=== PATIENT | male | born 1995 ===

== ENCOUNTER 2017-03-20 08:22 | Emergency (ER) | payer OTHER ==
[2017-03-20 08:26] VITALS: BP 132/72; PULSE 89; O2SAT 97; BMI 25.7
[2017-03-20 08:32] VITALS: RESP 21; TEMP 98.8
[2017-03-20] MEDS ORDERED: Dexamethasone 4 mg/1 ml IM ONE (08:48)
--- NOTE | 2017-03-20 08:52 | ED PDOC ---
HPI: CCC, URI, Sore Throat Time Seen by Provider: 03/20/17 08:41 Chief Complaint (Nursing): ENT Problem Chief Complaint (Provider): Sore Throat History Per: Patient History/Exam Limitations: no limitations Have you had recent travel within the past 21 days to any of the following countries: [place], [place], [place] or [place]?: No Onset/Duration Of Symptoms: Days (x 3) Sick Contacts (Context): None Associated Symptoms: denies: Fever, Chills, Cough Additional Complaint(s): Pt is a 21 year old male, with no previous medical history, who presents to the ED with complaints of a sore throat ongoing for the past 3 days. Pt reports pain when swallowing. Pt denies any fever, chills or cough. Pt reports to seeing white spots on his tonsils when looking in the mirror. Pt reports no additional complaints at this time. PMD: none provided Past Medical History Reviewed: Historical Data, Nursing Documentation, Vital Signs Vital Signs: Last Vital Signs Temp 98.8 F 03/20/17 08:30 Pulse 89 03/20/17 08:30 Resp 21 03/20/17 08:30 BP 132/72 03/20/17 08:30 Pulse Ox 97 03/20/17 09:44 - Medical History PMH: No Chronic Diseases - Surgical History Surgical History: No Surg Hx - Family History Family History: States: No Known Family Hx - Social History Current smoker - smoking cessation education provided: No Alcohol: None Drugs: Denies - Home Medications Home Medications: Ambulatory Orders Medication Instructions Recorded Penicillin VK [Pen-Vee K] 1 tab PO BID #20 tab 03/20/17 - Allergies Allergies/Adverse Reactions: Allergies Allergy/AdvReac Type Severity Reaction Status Date / Time mushroom Allergy RASH Verified 03/20/17 08:32 Review of Systems ROS Statement: Except As Marked, All Systems Reviewed And Found Negative Constitutional: Negative for: Fever, Chills ENT: Positive for: Throat Pain, Other (pain with swallowing ) Respiratory: Negative for: Cough Physical Exam - Reviewed Nursing Documentation Reviewed: Yes Vital Signs Reviewed: Yes - Physical Exam Appears: Positive for: Well, Non-toxic, No Acute Distress ENT: Positive for: Tonsillar Exudate (bilateral ), Other (left submandibular lymphadenopathy, no drooling, no trismus, no hot potatoe voice) Cardiovascular/Chest: Positive for: Regular Rate, Rhythm Respiratory: Positive for: Normal Breath Sounds Comments: No hot potato voice, drooling, tonsillar kissing or trismus noted - ECG O2 Sat by Pulse Oximetry: 97 (RA) Pulse Ox Interpretation: Normal Medical Decision Making Medical Decision Making: Initial Impression: pharyngitis/strep throat Initial Plan: * Decadron Inj * Pen-Vee K * reevaluation Upon provider reevaluation patient is feeling better, is medically stable, and requires no further treatment in the ED at this time. Patient will be discharged home with Rx for penicillin. Counseling was provided and all questions were answered regarding diagnosis and need for follow up with PMD. There is agreement to discharge plan. Return if symptoms persist or worsen. Scribe Attestation: Documented by Felecia Feng, acting as a scribe for Johnson Woods Jr., MD. Provider Scribe Attestation: All medical record entries made by the Scribe were at my direction and personally dictated by me. I have reviewed the chart and agree that the record accurately reflects my personal performance of the history, physical exam, medical decision making, and the department course for this patient. I have also personally directed, reviewed, and agree with the discharge instructions and disposition. Disposition - Clinical Impression Clinical Impression: Strep pharyngitis - Patient ED Disposition Is Patient to be Admitted: No Doctor Will See Patient In The: Office Counseled Patient/Family Regarding: Studies Performed, Diagnosis, Need For Followup, Rx Given - Disposition Referrals: [facility] [Outside] Disposition: Routine/Home Disposition Time: 08:50 Condition: STABLE Additional Instructions: Mr. Enrique, thank you for letting us take care of you today. Return to the ER if your symptoms worsen, or if any problems. Take the antibiotics listed below as prescribed. You have to finish the entire course of the antibiotics (even if you feel better soon). We want to make sure that you are getting better. So please call the [facility] at the phone number listed below to make a follow up appointment for next week. Take Motrin as need for pain. Gargling w/ salt water can help too. Throw away your current tooth brush and buy a new one. Avoid kissing anyone for a week. Prescriptions: Penicillin VK [Pen-Vee K] 1 tab PO BID #20 tab Instructions: Strep Throat (ED) Forms: [facility] ED School/Work Excuse Print Language: SWISS - POA Present On Arrival: None
== END 2017-03-20 09:24 | disposition home or self-care (01) ==
LOC: H.ER 08:22
DX: J02.0 Streptococcal pharyngitis (principal)